=== PATIENT | female | born 1955 | race Caucasian/White ===

== ENCOUNTER 2017-11-21 18:40 | Inpatient (IN) ==
[2017-11-21] MEDS ORDERED: SODIUM CHLORIDE 0.9% 1,000 ML IV STA (19:00)
[2017-11-21 19:20] LABS: Basophils % 0.3 % (0.0-0.8); Eosinophils # 0.1 10*3/uL (0.0-0.87); Eosinophils % 0.5 % (0.00-10.9); Hematocrit 45.3 VOL% (35.7-47.0); Hemoglobin 15.2 GM/DL (12.0-16.0); Immature Granulocytes % 0.3 %; Immature Granulocytes Absolute 0.03 #; Lymphocytes % 17.9 % (21.3-54.2); Mean Corpuscular HGB Conc 33.6 GM/DL (32-36); Mean Corpuscular Hemoglobin 34 PG (27-34); Monocytes # 0.8 10*3/uL (0.11-0.8); Monocytes % 6.8 % (1.7-12.7); Neutrophils # 8.2 10*3/uL (1.4-7.4); Neutrophils % 74.2 % (38.7-73.9); Platelet Count 219 T/CUMM (130-400); Red Blood Count 4.53 MC/CUMM (3.8-5.5); Red Cell Distribution Width 12.5 % (9.3-17.3); White Blood Count 11.1 T/CUMM (4-12)
[2017-11-21] MEDS ORDERED: MAGNESIUM SULF RIDER 4 GM in PREMIX 1 EACH IV PRN (19:21)
[2017-11-21] MEDS ORDERED: NICOTINE 21 MG/24 HR PATCH TRANSDERM PRN ×2 (19:21→22:15)
[2017-11-21] MEDS ORDERED: MAGNESIUM SULF RIDER 2 GM in PREMIX 1 EACH IV PRN (19:21)
[2017-11-21 19:28] LABS: Apearance,Urine CLEAR (Clear); Bilirubin,Urine Negative (Negative); Blood, Urine Negative (Negative); Glucose,Urine (UA) Negative (Negative); Ketones,Urine Negative (Negative); Nitrite,Urine Negative (Negative); Protein,Urine Negative; RBC,Urine 1 /HPF (0-4); Squamous Epithelial Cell,Urine Occasional /HPF (0-10); Urine Color Straw (Yellow); Urine Specific Gravity 1.005 (1.001-1.035); Urine Urobilinogen < 2.0 EU/DL (0.2-1.0); WBC,Urine 4 /HPF (0-6)
[2017-11-21 19:31] LABS: INR 0.9; Partial Thromboplastin Time 31.7 SECS (0-40)
[2017-11-21 19:35] LABS: Barbiturates Screen,Urine Negative (Negative); Benzodiazepines Screen,Urine Negative (Negative); Cannabinoid Screen,Urine Negative (Negative); Opiate Screen,Urine Negative (Negative); Phencyclidine Screen,Urine Negative (Negative)
[2017-11-21] MEDS ORDERED: MORPHINE 4 MG/1 ML VIAL IV STA (19:44)
[2017-11-21 19:53] LABS: Alanine Aminotransferase 9 U/L (13-56); Albumin 3.7 G/DL (3.4-5.0); Alkaline Phosphatase 74 U/L (45-117); Aspartate Amino Transferase 19 U/L (0-37); Bilirubin,Total < 0.39 MG/DL (0.2-1.0); Blood Urea Nitrogen 11 MG/DL (7-18); Calcium 9.1 MG/DL (8.5-10.1); Glucose 115 MG/DL (74-106); Osmolality,Calculated 278.4 MOS/KG (273-304); Potassium 3.7 MMOL/L (3.5-5.1); Sodium 140 MMOL/L (136-145); Total Protein 7.5 G/DL (6.4-8.3)
[2017-11-21] MEDS: DEXTROSE 5% NACL 0.9% 1,000 ML IV SCH (21:02)
[2017-11-21] MEDS: ENOXAPARIN 60 MG/0.6 ML SYRINGE SUBCUT SCH (21:04)
[2017-11-21] MEDS ORDERED: MORPHINE 4 MG/1 ML VIAL IV PRN (21:56)
[2017-11-21] MEDS ORDERED: ZALEPLON 5 MG CAPSULE PO PRN (22:10)
[2017-11-21] MEDS ORDERED: ALUMINUM/MAGNES/SIMETH MAX STR 30 ML UDCUP PO PRN (22:10)
[2017-11-21] MEDS ORDERED: ONDANSETRON 4 MG/2 ML VIAL IV PRN (22:15)
[2017-11-21] MEDS: KETOROLAC 30 MG/1 ML VIAL IV SCH (22:16)
[2017-11-21] MEDS ORDERED: NITROGLYCERIN SL 0.4 MG TABLET SL PRN (22:17)
[2017-11-21] MEDS: METOPROLOL TARTRATE 25 MG TABLET PO SCH (23:37)
[2017-11-22] MEDS ORDERED: SODIUM CHLORIDE 0.9% 250 ML IV SCH (01:00)
[2017-11-22] MEDS ORDERED: SODIUM CHLORIDE 0.9% 250 ML IV ONE (01:06)
[2017-11-22] MEDS: KETOROLAC 30 MG/1 ML VIAL IV SCH ×4 (03:48→22:30)
[2017-11-22] MEDS: DEXTROSE 5% NACL 0.9% 1,000 ML IV SCH ×3 (04:12→20:46)
[2017-11-22 05:51] LABS: Basophils % 0.5 % (0.0-0.8); Eosinophils # 0.1 10*3/uL (0.0-0.87); Eosinophils % 1.6 % (0.00-10.9); Hematocrit 35.7 VOL% (35.7-47.0); Immature Granulocytes % 0.2 %; Immature Granulocytes Absolute 0.01 #; Lymphocytes # 1.8 10*3/uL (1.4-4.0); Lymphocytes % 31.7 % (21.3-54.2); Mean Corpuscular HGB Conc 33.6 GM/DL (32-36); Mean Corpuscular Hemoglobin 34 PG (27-34); Mean Corpuscular Volume 100.3 FL (87-102); Mean Platelet Volume 9.9 FL (9.6-12.0); Monocytes # 0.7 10*3/uL (0.11-0.8); Monocytes % 12.8 % (1.7-12.7); Neutrophils % 53.2 % (38.7-73.9); Platelet Count 175 T/CUMM (130-400); Red Blood Count 3.56 MC/CUMM (3.8-5.5); Red Cell Distribution Width 12.7 % (9.3-17.3); White Blood Count 5.6 T/CUMM (4-12)
[2017-11-22 06:19] LABS: Risk Ratio 2.15
[2017-11-22 06:21] LABS: Albumin 2.7 G/DL (3.4-5.0); Bilirubin,Total 0.6 MG/DL (0.2-1.0); Potassium 3.5 MMOL/L (3.5-5.1); Total Protein 5.6 G/DL (6.4-8.3)
[2017-11-22 06:24] LABS: Troponin I Only 0.433 NG/ML (0.00-0.045)
[2017-11-22] MEDS: ALBUTEROL/IPRATROPIUM 3 ML NEB RESP TX SCH ×3 (08:04→19:44)
[2017-11-22] MEDS: PANTOPRAZOLE 40 MG TABLET PO SCH (09:51)
[2017-11-22] MEDS: ASPIRIN CHEW 81 MG TABLET PO SCH (09:54)
[2017-11-22] MEDS: ENOXAPARIN 60 MG/0.6 ML SYRINGE SUBCUT SCH ×2 (09:54→20:49)
[2017-11-22] MEDS: METOPROLOL TARTRATE 25 MG TABLET PO SCH ×2 (09:54→21:21)
[2017-11-22] MEDS ORDERED: traMADol 50 MG TABLET PO PRN (11:41)
[2017-11-22] MEDS: LEVOFLOXACIN INJ 500 MG in PREMIX 1 EACH IV SCH (12:39)
[2017-11-22] MEDS: CLORAZEPATE 3.75 MG TABLET PO PRN (20:49)
[2017-11-23] MEDS: ALBUTEROL/IPRATROPIUM 3 ML NEB RESP TX SCH ×4 (00:02→19:35)
[2017-11-23 03:52] LABS: Basophils % 0.4 % (0.0-0.8); Eosinophils # 0.1 10*3/uL (0.0-0.87); Eosinophils % 1.5 % (0.00-10.9); Hematocrit 35.2 VOL% (35.7-47.0); Hemoglobin 11.6 GM/DL (12.0-16.0); Immature Granulocytes % 0.2 %; Immature Granulocytes Absolute 0.01 #; Lymphocytes # 1.5 10*3/uL (1.4-4.0); Lymphocytes % 30.9 % (21.3-54.2); Mean Corpuscular Hemoglobin 33 PG (27-34); Mean Corpuscular Volume 100.3 FL (87-102); Mean Platelet Volume 10.5 FL (9.6-12.0); Monocytes # 0.6 10*3/uL (0.11-0.8); Monocytes % 11.6 % (1.7-12.7); Neutrophils # 2.7 10*3/uL (1.4-7.4); Neutrophils % 55.4 % (38.7-73.9); Platelet Count 156 T/CUMM (130-400); Red Blood Count 3.51 MC/CUMM (3.8-5.5); Red Cell Distribution Width 12.9 % (9.3-17.3); White Blood Count 4.8 T/CUMM (4-12)
[2017-11-23] MEDS: DEXTROSE 5% NACL 0.9% 1,000 ML IV SCH (03:55)
[2017-11-23 04:27] LABS: Calcium 8.3 MG/DL (8.5-10.1); Osmolality,Calculated 274.5 MOS/KG (273-304)
[2017-11-23] MEDS: KETOROLAC 30 MG/1 ML VIAL IV SCH ×4 (05:13→23:16)
[2017-11-23] MEDS ORDERED: ACETAMINOPHEN 325 MG TABLET PO PRN ×2 (05:47→05:59)
[2017-11-23] MEDS: ENOXAPARIN 40 MG/0.4 ML SYRINGE SUBCUT SCH (09:59)
[2017-11-23] MEDS: PANTOPRAZOLE 40 MG TABLET PO SCH (10:00)
[2017-11-23] MEDS: METOPROLOL TARTRATE 25 MG TABLET PO SCH ×2 (10:00→21:16)
[2017-11-23] MEDS: ASPIRIN CHEW 81 MG TABLET PO SCH (10:00)
[2017-11-23] MEDS: CLORAZEPATE 3.75 MG TABLET PO PRN ×2 (10:07→16:25)
[2017-11-23] MEDS: methylPREDNISolone SOD SUC 40 MG/1 ML VIAL IV SCH ×2 (10:15→21:13)
[2017-11-23 10:55] LABS: Apearance,Urine Slightly Hazy (Clear); Bacteria,Urine Many /HPF (Few); Bilirubin,Urine Negative (Negative); Blood, Urine Small mg/dL (Negative); Glucose,Urine (UA) Negative (Negative); Ketones,Urine Negative (Negative); Nitrite,Urine Negative (Negative); Protein,Urine Negative; Squamous Epithelial Cell,Urine Occasional /HPF (0-10); Urine Color Straw (Yellow); Urine Specific Gravity 1.002 (1.001-1.035); Urine Urobilinogen < 2.0 EU/DL (0.2-1.0)
[2017-11-23] MEDS: LEVOFLOXACIN INJ 500 MG in PREMIX 1 EACH IV SCH (11:38)
[2017-11-23] MEDS ORDERED: diphenhydrAMINE CAP 25 MG CAPSULE PO PRN (12:11)
[2017-11-23] MEDS: BISACODYL 5 MG TABLET PO PRN (13:01)
[2017-11-23] MEDS ORDERED: LORazepam 2 MG/1 ML VIAL IM PRN (20:10)
[2017-11-23] MEDS: LORazepam 2 MG/1 ML VIAL IV PRN (21:30)
[2017-11-24] MEDS: ALBUTEROL/IPRATROPIUM 3 ML NEB RESP TX SCH ×4 (01:39→19:32)
[2017-11-24] MEDS: KETOROLAC 30 MG/1 ML VIAL IV SCH (05:14)
[2017-11-24] MEDS ORDERED: methylPREDNISolone SOD SUC 40 MG/1 ML VIAL IV SCH (08:00)
[2017-11-24] MEDS ORDERED: POTASSIUM CHLORIDE RIDER 10 MEQ in PREMIX 1 EACH IV PRN (09:40)
[2017-11-24] MEDS ORDERED: MAGNESIUM SULF RIDER 2 GM in PREMIX 1 EACH IV PRN (09:40)
[2017-11-24] MEDS ORDERED: DIAZEPAM 5 MG TABLET PO ONE (09:40)
[2017-11-24] MEDS ORDERED: diphenhydrAMINE CAP 25 MG CAPSULE PO PRN (09:49)
[2017-11-24] MEDS: LEVOFLOXACIN INJ 500 MG in PREMIX 1 EACH IV SCH (11:34)
[2017-11-24] MEDS: SODIUM CHLORIDE 0.45% 1,000 ML IV SCH ×2 (11:36→19:21)
[2017-11-24] MEDS: ASPIRIN CHEW 81 MG TABLET PO SCH (12:17)
[2017-11-24] MEDS: PANTOPRAZOLE 40 MG TABLET PO SCH (12:17)
[2017-11-24] MEDS: ENOXAPARIN 40 MG/0.4 ML SYRINGE SUBCUT SCH (12:18)
[2017-11-24] MEDS: KETOROLAC 10 MG TABLET PO SCH ×2 (12:18→18:03)
[2017-11-24] MEDS: METOPROLOL TARTRATE 25 MG TABLET PO SCH ×2 (12:18→21:29)
[2017-11-24] MEDS ORDERED: MIDAZOLAM 2 MG/2 ML VIAL ONE (12:34)
[2017-11-24] MEDS ORDERED: fentaNYL 100 MCG/2 ML VIAL ONE (12:34)
[2017-11-24] MEDS ORDERED: LIDOCAINE 1% 20 ML VIAL ONE (12:44)
[2017-11-24] MEDS ORDERED: diphenhydrAMINE 50 MG/1 ML VIAL ONE (12:47)
[2017-11-24] MEDS ORDERED: KETOROLAC 30 MG/1 ML VIAL IV PRN (14:29)
[2017-11-24] MEDS ORDERED: NICOTINE 21 MG/24 HR PATCH TRANSDERM PRN (14:29)
[2017-11-24] MEDS: CLORAZEPATE 3.75 MG TABLET PO PRN (16:16)
[2017-11-24] MEDS: BISACODYL 5 MG TABLET PO PRN (16:16)
[2017-11-24] MEDS ORDERED: ROSUVASTATIN 20 MG TABLET PO SCH (21:00)
[2017-11-24] MEDS: LORazepam 2 MG/1 ML VIAL IV PRN (21:31)
[2017-11-25] MEDS: KETOROLAC 10 MG TABLET PO SCH ×3 (00:49→11:36)
[2017-11-25] MEDS: ALBUTEROL/IPRATROPIUM 3 ML NEB RESP TX SCH ×3 (01:15→13:44)
[2017-11-25] MEDS: SODIUM CHLORIDE 0.45% 1,000 ML IV SCH (02:55)
[2017-11-25 05:49] LABS: Basophils % 0.1 % (0.0-0.8); Eosinophils % 0.2 % (0.00-10.9); Hematocrit 32.8 VOL% (35.7-47.0); Hemoglobin 10.8 GM/DL (12.0-16.0); Immature Granulocytes % 0.5 %; Immature Granulocytes Absolute 0.05 #; Lymphocytes # 2.1 10*3/uL (1.4-4.0); Lymphocytes % 20.6 % (21.3-54.2); Mean Corpuscular HGB Conc 32.9 GM/DL (32-36); Mean Corpuscular Hemoglobin 34 PG (27-34); Mean Corpuscular Volume 101.9 FL (87-102); Mean Platelet Volume 10.2 FL (9.6-12.0); Monocytes # 0.7 10*3/uL (0.11-0.8); Neutrophils # 7.4 10*3/uL (1.4-7.4); Neutrophils % 71.6 % (38.7-73.9); Platelet Count 205 T/CUMM (130-400); Red Blood Count 3.22 MC/CUMM (3.8-5.5); Red Cell Distribution Width 12.9 % (9.3-17.3); White Blood Count 10.4 T/CUMM (4-12)
[2017-11-25 06:08] LABS: Potassium 4.5 MMOL/L (3.5-5.1)
[2017-11-25] MEDS ORDERED: CLOPIDOGREL 75 MG TABLET PO SCH (09:00)
[2017-11-25] MEDS ORDERED: LEVOFLOXACIN 500 MG TABLET PO SCH (09:00)
[2017-11-25] MEDS ORDERED: CARVEDILOL 3.125 MG TABLET PO SCH (09:00)
[2017-11-25] MEDS ORDERED: ASPIRIN EC 81 MG TABLET PO SCH (09:00)
[2017-11-25] MEDS ORDERED: predniSONE 20 MG TABLET PO SCH (09:00)
[2017-11-25] MEDS: PANTOPRAZOLE 40 MG TABLET PO SCH (10:08)
[2017-11-25] MEDS: ENOXAPARIN 40 MG/0.4 ML SYRINGE SUBCUT SCH (10:09)
[2017-11-25] MEDS: CLORAZEPATE 3.75 MG TABLET PO PRN (10:16)
[2017-11-25 12:26] VITALS: BP 118/66
== END 2017-11-25 15:50 | disposition home or self-care (01) | DRG 280 ==
LOC: N.EDINP 18:40 → N.ED 18:40 → N.TELEN 20:18
PROVIDERS: ADMIT Internal Medicine Cardiovascular Disease; ATTEND Internal Medicine Cardiovascular Disease